=== PATIENT | male | born 1960 | race Caucasian/White ===

== ENCOUNTER → 2018-05-29 15:50 | Outpatient (CLI) | payer OTHER, SELFPAY ==
[2018-05-29 17:47] LABS: Absolute Lymphocyte Count 2.17 X10^3/ul (0.83-4.51); Absolute Neutrophil Count 3.4 X10^3/uL (2.0-7.7); Basophil# 0.03 X10^3/uL; Basophil% 0.5 % (0-1); Eosinophil# 0.12 X10^3/uL; Eosinophils% 1.9 % (0-5); Hematocrit 43.3 % (40-54); Hemoglobin 14.2 g/dl (13.0-16.5); Lymphocyte # 2.17 X10^3/ul (4.0); Lymphocyte % 34.7 % (19-41); Mean Corp Hgb Conc 32.8 g/gl (32-36); Mean Corpuscular Hgb 29.5 pg (27.0-32.0); Mean Platelet Vol. 8.9 fl (6.2-12.0); Monocyte# 0.51 X10^3/uL; Monocyte% 8.2 % (0-10); Neutrophil # 3.42 X10^3/uL (2.7-7.7); Neutrophil % 54.7 % (47-70); Platelet Count 351 K/mm3 (150-450); RBC Distribution Width CV 13.4 % (11.6-14.6); RBC Distribution Width SD 44.2 fl (35.1-43.9); Red Blood Count 4.81 M/mm3 (4.6-6.2); White Blood Count 6.3 K/mm3 (4.4-11.0)
[2018-05-29 17:52] LABS: POSITIVE COUNT NO; POSITIVE DIFFERENTIAL NO; POSITIVE MORPHOLOGY NO
[2018-05-29 17:53] LABS: Vitamin D,25 Hydroxy 34.8 ng/mL (29.95-100.01)
[2018-05-29 17:55] LABS: Anion Gap 10 (5-15); BUN 9 mg/dL (7-18); BUN/Creat Ratio 10.5 RATIO (10-20); Calcium,Total 9.1 mg/dL (8.5-10.1); Chloride 105 mmol/L (98-107); Cholesterol 238 mg/dL (200); Creatinine, Serum 0.86 mg/dL (0.70-1.30); EST Glomerular Filtration Rate 97 mL/min (>60); Est Glom Filt Rate - Afr Amer 118 mL/min (>60); Glucose 91 mg/dL (74-106); High Density Lipoprotein 73 mg/dL; PSA,Total - Annual Screen 0.84 ng/mL (0.00-4.00); Sodium Level 142 mmol/L (136-145); Thyroid Stim Hormone (TSH) 1.71 uIU/mL (0.358-3.74); Triglycerides 65 mg/dL; Very Low Density Lipoprotein 13 mg/dL (5-40)
== END ==
PROVIDERS: Family Provider Family Medicine; PCP Family Medicine; Visit Provider Family Medicine
DX: Z00.00 Encounter for general adult medical examination without abnormal findings (principal); R53.83 Other fatigue
CPT/HCPCS: 36415; 80048; 80061; 82306; 84153; 84443; 85025; G0103

== ENCOUNTER 2019-04-22 07:06 | Day surgery (SDC) | payer OTHER, SELFPAY ==
[2019-04-22 07:25] VITALS: BP 134/71; PULSE 64; RESP 16; TEMP 36.9; O2SAT 99; BMI 27.6
--- NOTE | 2019-04-22 07:46 | HP.PCM_ITS ---
History of Present Illness Date of Admission: 04/22/19 The patient is a 58 year old M here for colonoscopy. Patient says his last colonoscopy was about 13 years ago and there were no polyps found. Patient does not know his family history as he thinks his father may have had colon cancer but he is not sure. He denies any abdominal pain or blood in the stool. Past Medical/Surgical History - Planned Operation Planned Operative Procedure/s: colonoscopy Date of Operative Procedure: 04/22/19 Permit Signed: No S.O.S: No Is This Patient Having a Total Joint: No - Previous Hospitalizations/Surgeries HX Hospitalizations: No HX of Surgeries: fertility surgery Any Problems With Anesthesia: No You/Your Family Experience Fever (Hyperthermia) With Anes: No Cholinesterase deficiency: No - Cardiovascular Hx Chest Pain within Last 2 months: No Hx of Irregular Heartbeat and/or Afib: No Hx Heart Attack: No Hx Congestive Heart Failure: No Hx Rheumatic Fever: No Hx Hypertension: No Hx Internal Defibrillator: No Hx Pacemaker: No Hx Cardiac Catheterization: No Hx Cardiac Surgery/Stents/Etc.: No Hx Stress Test: No HX Edema: No Hx Pain in Legs when Walking/Leg Cramps: No - Respiratory Chronic Cough: No HX of Shortness of Breath: No Hoarseness: No Hx Chronic Obstructive Pulmonary Disease (COPD): No Hx Asthma: No Hx Emphysema: No Hx Sleep Apnea: No Hx Oxygen Use at Home: No Hx Respiratory Tract Infection/Cold (presently): No Do You Snore Loudly (louder than talking or can be heard): No Do You Often Feel Tired/ Fatigued/ Sleepy Dring Daytime?: No Has Anyone Observed You Stop Breathing During Sleep?: No Result (for STOP score): Negative Hx Smoking: Yes - quit 35 yrs ago Smoking Status: Former smoker - Gastrointestinal Hx Gastroesophageal Reflux: Yes - mild Controlled With Meds: No Hx Gastrointestinal Disorders: No Hx Gastrointestinal Bleed: No Hx Ulcer: No Hx Hiatal Hernia: No Difficulty Chewing/Swallowing: No Recent Onset of Swallowing Problems: No Special diet followed at home: No Hx Unplanned Weight Loss of 20#: No HX Unplanned Weight Gain of 20#: No - Neurological Hx Seizures: No HX Syncope/Blackout Spells/Unconsciousness: No Hx CVA/Stroke: No Hx Transient Ischemic Attacks (TIA): No Hx Multiple Sclerosis: No Hx Parkinson's Disease: No Hx Head/Neck Injury: No Hx Headaches: No Hx Back Injury/Pain: No Recent Onset of Speech Difficulty: No Restless Legs: No - Blood Disorder Hx Leukemia: No Bleeding Tendencies: No Hx Deep Vein Thrombosis: No Hx High Cholesterol: Yes - on medication Blood Transmitted Disease: No Hx Hepatitis: No Hx Cirrhosis: No Hx Anemia: No Hx Blood Disorders: No - Genitourinary Hx Renal Disease: No - Musculoskeletal Hx Arthritis: No Hx Rheumatoid Arthritis: No Hx Gout: No Recent Onset of an Orthopedic Problem: No - Endocrine Hx Diabetes: No Thyroid Disease: No Hx Steroid Therapy: No - Psycho/Social Hx Substance Use: No Hx Alcohol Use: No Hx Anxiety: No Hx Depression: No Mental Illness: No Hx Dementia: No - Miscellaneous Hx Cancer: No Recent Exposure to Contagious Disease: No Active MRSA: No Hx of C-Diff: No Any Loose Teeth: No Additional information pertinent to anesthesia:: poor historian. answered questions by saying im sure i had that in the past. Allergies No Known Allergies Allergy (Verified 04/22/19 07:24) - Discharge Is Pt Admitted From a Care Home, or a Fpc: No Who Could Help: family After D/C, Where Do you Plan to Go: Return Home - Physical Exam General: Alert, Oriented x3 Lungs: Normal air movement Cardiovascular: Regular rate, Regular Rhythm Abdomen: Soft, Non Tender, Non-Distended Vital Signs Temp Pulse Resp BP Pulse Ox 98.4 F 64 16 134/71 H 99 04/22/19 07:25 04/22/19 07:25 04/22/19 07:25 04/22/19 07:25 04/22/19 07:25 Oxygen Delivery Method Room Air Weight: 181 lb 14.102 oz Body Mass Index (BMI) 27.6 Assessment/Plan 58-year-old male for screening colonoscopy I explained endoscopy in detail to the patient. I explained the risks including but not limited to stroke or heart attack with anesthesia, perforation of the GI tract, bleeding, infection. I explained that any of these could necessitate further emergency surgery. The patient understands and all questions were answered sufficiently. The patient wishes to proceed with procedure. Ash Leggett MD Pager: [facility] [address] [place] [address], [address] [place] [phone] Office: Surgery Risks - Colonoscopy Risks Include but are not Limited To: Risks include but are not limited to: Bleeding, perforation requiring further surgery, inability to complete colonoscopy requiring barium enema.
[2019-04-22 08:29] VITALS: BP 119/65; BP 134/71; PULSE 62; RESP 16; TEMP 36.4; O2SAT 100
--- NOTE | 2019-04-22 08:29 | OP.ENDO_ITS ---
04/22/2019 Ajay Yanez MD [address] [id number] Re : Colonoscopy procedure for Spencer Patel Dear Dr. Yanez This procedure was performed on Monday, April 22, 2019. My impressions and recommendations are as follows: Impressions : - The entire examined colon is normal on direct and retroflexion views. - No specimens collected. Recommendations : - Discharge patient to home. - Resume previous diet. - Continue present medications. - Repeat colonoscopy in 10 years for screening purposes. My findings are described in the full procedure note, which is enclosed. If I can be of further assistance, please feel free to contact me at Doctor phone number(s): , Work: . Sincerely, Ash Leggett MD 04/22/2019 8:29:22 AM This report has been signed electronically.
[2019-04-22 08:35] VITALS: BP 120/63; BP 134/71; PULSE 62; RESP 16; O2SAT 100
[2019-04-22 08:40] VITALS: BP 123/76; BP 134/71; PULSE 55; RESP 16; O2SAT 99
[2019-04-22 08:45] VITALS: BP 118/69; BP 134/71; PULSE 58; RESP 16; TEMP 36.4; O2SAT 100
[2019-04-22 08:46] VITALS: BP 134/71
== END 2019-04-22 09:05 | disposition home or self-care (01) ==
LOC: EN 07:09 → AC 07:09
PROVIDERS: Family Provider Family Medicine; PCP Family Medicine; Referring Provider Family Medicine; Visit Provider Surgery
PROC: 0DJD8ZZ Inspection of Lower Intestinal Tract, Via Natural or Artificial Opening Endoscopic (ICD-10-PCS; CPT 45378; principal; 2019-04-22 07:55)
DX: Z12.11 Encounter for screening for malignant neoplasm of colon (principal); K21.9 Gastro-esophageal reflux disease without esophagitis; E78.00 Pure hypercholesterolemia, unspecified; Z87.891 Personal history of nicotine dependence; Z79.899 Other long term (current) drug therapy
CPT/HCPCS: 45378; J7120

== ENCOUNTER → 2019-12-24 | Outpatient (CLI) | payer OTHER, SELFPAY | END | disposition home or self-care (01) | LOC: MFPLAB 11:40 | PROVIDERS: PCP Family Medicine; Referring Provider Family Medicine; Visit Provider Family Medicine | DX: R69 Illness, unspecified (principal) ==

== ENCOUNTER 2021-02-17 13:35 | Emergency (ER) | payer OTHER, SELFPAY ==
[2021-02-17 13:36] VITALS: BP 142/79; PULSE 86; RESP 18; TEMP 36.6; O2SAT 98; BMI 28.1
[2021-02-17 14:11] VITALS: PULSE 82; RESP 22; O2SAT 97
--- NOTE | 2021-02-17 14:16 | RAD_ITS ---
STUDY: X-RAY - LEFT HAND REASON FOR EXAM: Male, 60 years old. Trauma. Pain and deformity of the fourth digit. TECHNIQUE: 3 view(s) of the hand. COMPARISON: None. FINDINGS: Normal radiocarpal articulation. Normal distal radioulnar joint. Normal visualized carpal bones. Normal carpal articulations Normal carpometacarpal articulation of the thumb. Normal second through fifth carpometacarpal joints. Normal metacarpi. Normal metacarpophalangeal joint of the thumb. Normal interphalangeal joint of the thumb. Normal proximal and distal phalanges of the thumb. Normal metacarpophalangeal joints of the second through fifth fingers. There is evidence of a dorsal dislocation of the proximal interphalangeal joint of the fourth digit. Normal phalanges of the second through fifth fingers. Soft tissue swelling. RAD/Hand Min 3 Views IMPRESSION: Dorsal dislocation of the proximal interphalangeal joint of the fourth digit with overlying soft tissue swelling Electronically Signed: Joshua Barajas MD at 15:04 EDT , Service support ,
--- NOTE | 2021-02-17 14:16 | EKG12_ITS ---
Test Reason : TRAUMA Blood Pressure : / mmHG Vent. Rate : 078 BPM Atrial Rate : 078 BPM P-R Int : 156 ms QRS Dur : 088 ms QT Int : 384 ms P-R-T Axes : 056 039 024 degrees QTc Int : 437 ms Normal sinus rhythm Normal ECG Confirmed by WESLEY CALLAHAN MD ([id number]), legal editor NOEMI ROMAN ([id number]) on 02/21/2021 12:38:06 PM Referred By: MANI Confirmed By:WESLEY CALLAHAN MD
--- NOTE | 2021-02-17 14:17 | CT_ITS ---
STUDY: CT BRAIN WITHOUT CONTRAST REASON FOR EXAM: Male, 60 years old. Trauma. Patient fell off the ladder. RADIATION DOSAGE (If Supplied By Facility): CTDIvol = ( 44.99 ) mGy, DLP = ( 796.11 ) mGycm TECHNIQUE: Transaxial CT imaging of the brain was performed without administration of intravenous contrast material. Individualized dose optimization techniques were used for this CT. COMPARISON: Comparison is made with prior study dated 01/14/2016. FINDINGS: Normal soft tissue structures. Normal calvarium. Normal size ventricles and extra-axial spaces for the patient''s age. Normal white matter tracts of the cerebral hemispheres. Normal basal ganglia and thalami. Normal brainstem. Normal cerebellum. There is no intracranial hemorrhage. There are no findings of an acute ischemic infarction. Normal visualized paranasal sinuses. CT/Brain/Head without Contrast IMPRESSION: Normal unenhanced CT scan of the brain. Electronically Signed: Joshua Barajas MD at 14:48 EDT , Service support ,
--- NOTE | 2021-02-17 14:17 | CT_ITS ---
STUDY: CT CHEST, ABDOMEN T PELVIS WITH CONTRAST REASON FOR EXAM: Male, 60 years old. Trauma -- TRAUMA ONLY: IV Contrast. Dont wait for creatinine RADIATION DOSAGE (If Supplied By Facility): CTDIvol = ( 19.21 ) mGy, DLP = ( 1713.31 ) mGycm TECHNIQUE: Transaxial imaging was performed following intravenous administration of . Individualized dose optimization techniques were used for this CT. COMPARISON: No relevant priors. FINDINGS: CHEST Hyperinflation. Mild degree of increased linear markings at the lung bases this is suggestive of mild basilar atelectasis and/or scarring slightly more prominent at the left lung base. Calcified granuloma in the left lower lobe. There is no demonstrated pleural abnormality. There are calcifications of the coronary arteries. Normal mediastinum. Calcified left hilar lymph nodes. Normal unenhanced pulmonary arteries. Atherosclerotic plaque formation at the level of the aortic arch. There are multi-level degenerative changes of the thoracic spine. There is no demonstrated abnormality of the visualized upper abdomen. ABDOMEN Mild degree of increased markings at the lung bases slightly worse on the left side suggestive of scarring. The visualized portions of the heart are within normal limits. There is decreased attenuation of the liver consistent with steatosis. Normal gallbladder and extrahepatic biliary system. Normal spleen. Normal pancreas. Normal bilateral adrenal glands. Normal right kidney. 3 mm nonobstructive calculus in the lower pole calyx of the left kidney. There is a small hiatal hernia. Normal small intestine. There are scattered colonic diverticula consistent with diverticulosis. The appendix is visualized and appears normal. Normal abdominal aorta. Normal inferior vena cava. Normal retroperitoneum. Normal abdominal wall. There are diffuse degenerative changes of the visualized lumbar spine. Grade 1 anterior listhesis of L5 on S1 secondary to spondylolysis of the pars interarticularis of the L5 vertebrae. PELVIS Normal urinary bladder. Prosthetic calcifications. Normal visualized small intestine. Normal visualized colon. There is no pelvic fluid. There is no pelvic lymphadenopathy or mass lesion. Normal visualized pelvic arteries. CT/CT Chest, Abd, Pel w/Contrast IMPRESSION: Mild degree of increased markings at the lung bases suggestive of mild scarring. Punctate calcification in the lower pole calyx of the left kidney. Grade 1 anterior listhesis of L5 on S1 with spondylolysis of the pars interarticularis of the L5 vertebrae. Electronically Signed: Joshua Barajas MD at 14:57 EDT , Service support ,
--- NOTE | 2021-02-17 14:17 | CT_ITS ---
STUDY: CT CERVICAL SPINE WITHOUT CONTRAST REASON FOR EXAM: Male, 60 years old. Trauma. Patient fell off ladder. RADIATION DOSAGE (If Supplied By Facility): CTDIvol = ( 25.32 ) mGy, DLP = ( 498.00 ) mGycm TECHNIQUE: High resolution transaxial imaging was performed without contrast material. Sagittal and coronal images were reconstructed. Individualized dose optimization techniques were used for this CT. COMPARISON: None FINDINGS: Normal craniovertebral junction. Normal anterior atlantoaxial articulation. Normal odontoid process. Normal cervical lordosis. Normal vertebral bodies and posterior osseous elements. C2-3: Normal endplates. Normal disc height and morphology. Normal central canal and intervertebral neuroforamina. C3-4: Moderate degree of disc space narrowing at the C3-C4 level with spondylosis. Mild degree of uncovertebral arthrosis and mild bilateral neural foraminal stenosis. C4-5: Normal endplates. Normal disc height and morphology. Normal central canal and intervertebral neuroforamina. C5-6: Normal endplates. Normal disc height and morphology. Normal central canal and intervertebral neuroforamina. C6-7: Normal endplates. Normal disc height and morphology. Normal central canal and intervertebral neuroforamina. C7-T1: Normal endplates. Normal disc height and morphology. Normal central canal and intervertebral neuroforamina. Normal visualized soft tissue structures. CT/Spine Cervical without Contras IMPRESSION: Degenerative changes, as described above. Electronically Signed: Joshua Barajas MD at 14:49 EDT , Service support ,
--- NOTE | 2021-02-17 14:18 | EDS_ITS ---
HPI HPI - Fall History of Present Illness Chief Complaint: Trauma Informant: patient Occured/Mechanism Occurred: Today Fall from Height (ft): 12 Usually ambulates: Without assistance Pain/Injury Pain Location: head, chest and upper extremity Quality of Pain: Aching Current Severity: Moderate Maximum Severity: Moderate Associated Symptoms Associated Symptoms: Negative for Parasthesias, Weakness and Loss of function Narrative Narrative: The patient is a 60-year-old male who is on no daily medications and presents to the emergency department after a fall. Patient was painting. He states he was about 12 feet in the air. States he lost his balance on his ladder and fell. He struck the truck that was near him. He struck his head and left posterior chest. He is unsure if he lost consciousness, but does have some amnesia to the event. He was able to stand and ambulate. His only current complaints are of pain in his left posterior ribs and in his left hand. He is right-hand dominant. He is unsure of his last tetanus. Tetanus Immunization: Unknown Prior similar symptoms: No Recent Illness/Hospitalization: No PFSH PFSH Medical History Patient denies medical problems Home Medications hydrocodone-acetaminophen 1 tab PO Q6H PRN PRN 3 Days #10 tablet 02/17/21 [Rx Last Taken Unknown] multivitamin 1 tab PO DAILY 02/17/21 [History Last Taken Unknown] Allergy/AdvReac Type Severity Reaction Status Date / Time No Known Allergies Allergy Verified 02/17/21 13:39 no significant family history no surgical history Social History Smoking Status: Former smoker ROS ROS ED Constitutional Constitutional ED: Denies chills or fever(s) Eyes Eyes: Denies blurry vision or change in vision ENT ENT ED: Denies ear pain or sore throat Cardiovascular Cardiovascular: Denies chest pain or palpitations Respiratory/Chest Respiratory/Chest: Denies cough, dyspnea or dyspnea on exertion Gastrointestinal Gastrointestinal: Denies abdominal pain, nausea or vomiting Genitourinary Genitourinary ED: Denies dysuria or urinary frequency Musculoskeletal Musculoskeletal: Denies arthralgias or myalgias Integumentary Denies rash Neurologic Neurologic: Denies headache(s) or paresthesias Psychiatric Psychiatric: Denies anxiety or depression Endocrine Endocrinology: Denies polydipsia or polyuria Allergic/Immunologic Allergic/Immunologic ED: Denies urticaria EXAM Physical Exam Const Vital Signs: 02/17/21 13:36 02/17/21 14:11 02/17/21 14:15 Temperature 97.8 F Temperature Source Temporal Pulse Rate 86 82 Respiratory Rate 18 22 H Respiratory Effort Normal Respiratory Depth Normal Respiratory Pattern Normal Blood Pressure 142/79 H Blood Pressure Mean 100 Pulse Ox 98 97 Oxygen Delivery Method Room Air Room Air Room Air Positive well nourished and well developed General Appearance ED: well developed HEENT Reports normocephalic HEENT Narrative: Abrasion on the posterior occipital area over the C-spine. No midline tenderness. No active bleeding. trauma Eyes PERRL and EOMs intact bilaterally Neck full ROM, no lymphadenopathy and supple General: Negative for tenderness Chest Wall inspection of chest normal; Negative for palpation of chest normal Chest Narrative: Tenderness in the left posterior rib Resp normal respiratory effort, no retractions and clear to auscultation bilaterally Cardio regular rate, regular rhythm and no murmurs GI non-tender, non-distended and no masses Auscultation: normoactive bowel sounds Palpation: soft Back/Spine no CVA tenderness Lumbar Spine / Lower Back: paraspinal muscle tenderness Extremity normal capillary refill and no calf tenderness Extremity Narrative: Obvious deformity of the left fourth finger. Normal cap refill. Neuro oriented x3, CN's II-XII intact bilaterally, moves all extremities, no focal motor deficits and no sensory deficits noted Sensorium / Orientation: alert, oriented to person, oriented to place, oriented to time and orientation impaired Motor Exam: strength 5/5 throughout Psych mental status grossly normal and thought process normal Skin Lesions: no lesions Rashes: no rashes MDM MDM MDM Narrative Medical decision making narrative: Patient presents to the emergency department after a fall on a ladder. He struck his head and did have amnesia to the event. He is also complaining of some posterior rib pain. He is not tachypneic or hypoxic. He has bilateral lung sounds. He is awake and alert with a GCS of 15. However, based on the mechanism metabolic work-up was pursued. He does have a mild leukocytosis which is likely stress related. CT of the head and neck were both negative for acute process. CT the abdomen and pelvis was also unremarkable for acute intra-abdominal injury. CT of the chest showed no pulmonary contusion, pneumothorax, hemothorax, or other dangerous process. I did discuss this with the radiologist as it was initially read as completely negative. He does appear to have some nondisplaced posterior rib fractures on ribs 5 through 7. X-rays of the left hand reviewed by myself and the radiologist you have show a PIP dislocation of the fourth. Patient underwent digital block with 10 cc bupivacaine. Once anesthesia was achieved, his finger was reduced easily. He is placed in AlumaFoam splint. The patient be given an incentive spirometer. His wound was cleaned and dressed. At this point, he will be discharged home and was counseled on concerning symptoms and reasons to return. Impression 1. Fall from 12 feet 2. Left fifth through seventh nondisplaced rib fracture 3. Posterior scalp abrasion 4. Left fourth PIP dislocation with reduction Lab Data Attestation: I reviewed the patient's lab results. Labs: Laboratory Results - last 24 hr 02/17/21 02/17/21 14:15 14:15 WBC 13.3 H RBC 5.06 Hgb 15.4 Hct 46.1 MCV 91.1 MCH 30.4 MCHC 33.4 RDW Std Deviation 45.2 H RDW Coeff of Barrett 13.4 Plt Count 368 MPV 8.2 Immature Gran % (Auto) 0.500 Neut % (Auto) 80.8 H Lymph % (Auto) 11.7 L [place] % (Auto) 6.1 Eos % (Auto) 0.5 Baso % (Auto) 0.4 Absolute Neuts (auto) 10.7 H Absolute Lymphs (auto) 1.55 Nucleated RBC % 0 Sodium 137 Potassium 3.9 Chloride 102 Carbon Dioxide 28.0 Anion Gap 7 BUN 12 Creatinine 0.76 Estim Creat Clear Calc 100.00 Est GFR (MDRD) Af Amer 134 Est GFR (MDRD) Non-Af 111 BUN/Creatinine Ratio 15.7 Glucose 123 H Calcium 9.0 Radiography Diagnostic Testing: Radiology Impression Hand X-Ray 02/17/21 14:16 IMPRESSION: Dorsal dislocation of the proximal interphalangeal joint of the fourth digit with overlying soft tissue swelling Electronically Signed: Joshua Barajas MD at 15:04 EDT , Service support , Brain CT 02/17/21 14:17 IMPRESSION: Normal unenhanced CT scan of the brain. Electronically Signed: Joshua Barajas MD at 14:48 EDT , Service support , Cervical Spine CT 02/17/21 14:17 IMPRESSION: Degenerative changes, as described above. Electronically Signed: Joshua Barajas MD at 14:49 EDT , Service support , Chest/Abdomen/Pelvis CT 02/17/21 14:17 IMPRESSION: Mild degree of increased markings at the lung bases suggestive of mild scarring. Punctate calcification in the lower pole calyx of the left kidney. Grade 1 anterior listhesis of L5 on S1 with spondylolysis of the pars interarticularis of the L5 vertebrae. Electronically Signed: Joshua Barajas MD at 14:57 EDT , Service support , ADDENDUM: 02/17/21 1518 Discharge Plan Triage Chief Complaint: Trauma ED Provider: Ivan Cannon Dx/Rx/DC Orders Clinical Impression: Fracture of rib, Closed dislocation of left middle finger Instructions: ED Joint Dislocation, ED Rib Fracture Prescriptions: New hydrocodone-acetaminophen [hydrocodone-acetaminophen] 1 TABLET tablet 1 tab PO Q6H PRN PRN (Reason: Pain) 3 Days Qty: 10 RF: 0 No Action multivitamin Tablet 1 tab PO DAILY RF: 0 Primary Care Provider: Ajay Yanez Referrals: Ajay Yanez MD [Primary Care Provider] -
[2021-02-17] MEDS: 0.9% Normal Saline 1,000 ML 999 ML IV (14:20)
[2021-02-17 14:23] LABS: Absolute Lymphocyte Count 1.55 X10^3/uL (0.83-4.51); Absolute Neutrophil Count 10.7 X10^3/uL (2.0-7.7); Basophil# 0.05 X10^3/uL; Basophil% 0.4 % (0-1); Eosinophil# 0.07 X10^3/uL; Eosinophils% 0.5 % (0-5); Hematocrit 46.1 % (40-54); Hemoglobin 15.4 g/dL (13.0-16.5); Lymphocyte # 1.55 X10^3/ul (0.83-4.51); Lymphocyte % 11.7 % (19-41); Mean Corp Hgb Conc 33.4 g/dL (32-36); Mean Corpuscular Hgb 30.4 pg (27.0-32.0); Mean Corpuscular Volume 91.1 fL (80-94); Mean Platelet Vol. 8.2 fl (6.2-12.0); Monocyte# 0.81 X10^3/uL; Monocyte% 6.1 % (0-10); NRBC Flagged by Analyzer 0 % (0-5); Neutrophil % 80.8 % (47-70); Platelet Count 368 K/mm3 (150-450); RBC Distribution Width CV 13.4 % (11.6-14.6); RBC Distribution Width SD 45.2 fl (35.1-43.9); Red Blood Count 5.06 M/mm3 (4.6-6.2); White Blood Count 13.3 K/mm3 (4.4-11.0)
[2021-02-17] MEDS: Diphth,Pertuss(Acell),Tet Vac 0.5 ML Vial IM (14:23)
[2021-02-17 14:36] LABS: Anion Gap 7 (5-15); BUN 12 mg/dL (7-18); BUN/Creat Ratio 15.7 RATIO (10-20); Chloride 102 mmol/L (98-107); Creatinine, Serum 0.76 mg/dL (0.70-1.30); EST Glomerular Filtration Rate 111 mL/min (>60); Est Glom Filt Rate - Afr Amer 134 mL/min (>60); Glucose 123 mg/dL (74-106); Potassium 3.9 mmol/L (3.5-5.1); Sodium Level 137 mmol/L (136-145)
[2021-02-17 16:46] VITALS: BP 124/79; PULSE 81; RESP 16; O2SAT 97
--- NOTE | 2021-02-17 16:47 | ED.RN ---
THIS NURSE REVIEWED D/C INSTRUCTIONS WITH PT AND . BOTH VERBALIZED UNDERSTANDING OF INSTRUCTIONS. PT DENIES FURTHER NEEDS OR QUESTIONS AT THIST TIME. PT AMBULATES FROM ROOM WITH STAFF STANDBY ASSIST
== END 2021-02-17 16:48 | disposition home or self-care (01) ==
LOC: ED 14:58
PROVIDERS: Emergency Provider Emergency Medicine; PCP Family Medicine
DX: S63.285A Dislocation of proximal interphalangeal joint of left ring finger, initial encounter (principal); S22.42XA Multiple fractures of ribs, left side, initial encounter for closed fracture; S00.01XA Abrasion of scalp, initial encounter; W11.XXXA Fall on and from ladder, initial encounter; Y93.89 Activity, other specified; Y92.89 Other specified places as the place of occurrence of the external cause; Y99.8 Other external cause status; Z87.891 Personal history of nicotine dependence
CPT/HCPCS: 26770; 70450; 71260; 72125; 73130; 74177; 80048; 85025; 90471; 90715; 93005; 96360; 96361; 99284; Q9967

== ENCOUNTER → 2021-02-24 10:58 | Outpatient (CLI) | payer OTHER, SELFPAY ==
[2021-02-17 13:36] VITALS: BMI 28.1
[2021-02-24 12:37] LABS: AST(SGOT) 20 U/L (15-37); Alanine Aminotransfer ALT/SGPT 43 U/L (16-61); Albumin, Serum 3.8 g/dL (3.2-5.0); Alkaline Phosphatase 83 U/L (45-117); Anion Gap 6 (5-15); BUN 10 mg/dL (7-18); BUN/Creat Ratio 15.1 RATIO (10-20); Calcium,Total 9.2 mg/dL (8.5-10.1); Chloride 102 mmol/L (98-107); Cholesterol 216 mg/dL (200); Creatinine, Serum 0.66 mg/dL (0.70-1.30); EST Glomerular Filtration Rate 131 mL/min (>60); Est Glom Filt Rate - Afr Amer 158 mL/min (>60); Globulin 3.8 g/dL (2.2-4.2); Glucose 108 mg/dL (74-106); High Density Lipoprotein 78 mg/dL; Potassium 3.6 mmol/L (3.5-5.1); Protein, Total 7.6 g/dL (6.4-8.2); Sodium Level 138 mmol/L (136-145); Triglycerides 66 mg/dL; Very Low Density Lipoprotein 13 mg/dL (5-40)
== END ==
PROVIDERS: PCP Family Medicine; Referring Provider Family Medicine; Visit Provider Family Medicine
DX: E78.5 Hyperlipidemia, unspecified (principal)
CPT/HCPCS: 36415; 80053; 80061

== ENCOUNTER → 2021-08-29 09:07 | Outpatient (CLI) | payer OTHER, SELFPAY ==
[2021-08-29 10:44] LABS: ALB/GLOB Ratio 1.1 RATIO (0.9-2.4); AST(SGOT) 16 U/L (15-37); Alanine Aminotransfer ALT/SGPT 29 U/L (16-61); Albumin, Serum 3.7 g/dL (3.2-5.0); Alkaline Phosphatase 67 U/L (45-117); Anion Gap 3 (5-15); BUN 13 mg/dL (7-18); BUN/Creat Ratio 17.9 RATIO (10-20); Calcium,Total 9.2 mg/dL (8.5-10.1); Chloride 109 mmol/L (98-107); Cholesterol 204 mg/dL (200); Creatinine, Serum 0.73 mg/dL (0.70-1.30); EST Glomerular Filtration Rate 117 mL/min (>60); Est Glom Filt Rate - Afr Amer 141 mL/min (>60); Globulin 3.5 g/dL (2.2-4.2); Glucose 102 mg/dL (74-106); High Density Lipoprotein 66 mg/dL; Potassium 4.2 mmol/L (3.5-5.1); Protein, Total 7.2 g/dL (6.4-8.2); Sodium Level 141 mmol/L (136-145); Triglycerides 85 mg/dL; Very Low Density Lipoprotein 17 mg/dL (5-40)
== END ==
PROVIDERS: PCP Family Medicine; Referring Provider Family Medicine; Visit Provider Family Medicine
DX: E78.5 Hyperlipidemia, unspecified (principal)
CPT/HCPCS: 36415; 80053; 80061

== ENCOUNTER → 2022-06-20 | Outpatient (CLI) | payer OTHER, SELFPAY ==
[2022-06-20 18:08] LABS: Absolute Lymphocyte Count 1.84 X10^3/uL (0.83-4.51); Absolute Neutrophil Count 3.5 X10^3/uL (2.0-7.7); Basophil# 0.04 X10^3/uL; Basophil% 0.7 % (0-1); Eosinophil# 0.11 X10^3/uL; Eosinophils% 1.8 % (0-5); Hematocrit 42.4 % (40-54); Hemoglobin 14.3 g/dL (13.0-16.5); Lymphocyte # 1.84 X10^3/ul (0.83-4.51); Lymphocyte % 30.4 % (19-41); Mean Corp Hgb Conc 33.7 g/dL (32-36); Mean Corpuscular Hgb 30.6 pg (27.0-32.0); Mean Corpuscular Volume 90.8 fL (80-94); Mean Platelet Vol. 8.9 fl (6.2-12.0); Monocyte# 0.54 X10^3/uL; Monocyte% 8.9 % (0-10); NRBC Flagged by Analyzer 0 % (0-5); Neutrophil % 57.9 % (47-70); Platelet Count 343 K/mm3 (150-450); RBC Distribution Width CV 13.2 % (11.6-14.6); RBC Distribution Width SD 43.4 fl (35.1-43.9); Red Blood Count 4.67 M/mm3 (4.6-6.2); White Blood Count 6.1 K/mm3 (4.4-11.0)
[2022-06-20 18:31] LABS: Thyroid Stim Hormone (TSH) 2.42 uIU/mL (0.358-3.74)
[2022-06-22 16:23] LABS: EBV Early Antigen IgG <9.0 U/mL (0.0-8.9); EBV Nuclear Antigen IgG < 18.0 U/mL (0.0-17.9); EBV-VCA IgG < 18.0 U/mL (0.0-17.9)
== END | disposition home or self-care (01) ==
LOC: MFPLAB 15:46
PROVIDERS: PCP Family Medicine; Visit Provider Family Medicine
DX: R53.83 Other fatigue (principal)
CPT/HCPCS: 36415; 84443; 85025; 86663; 86664; 86665

== ENCOUNTER → 2023-04-02 | Outpatient (CLI) | payer OTHER, SELFPAY ==
[2023-04-02 11:44] LABS: Anion Gap 9 (5-15); BUN 14 mg/dL (7-18); BUN/Creat Ratio 17.7 RATIO (10-20); Calcium,Total 9.6 mg/dL (8.5-10.1); Chloride 106 mmol/L (98-107); Cholesterol 219 mg/dL (200); Creatinine, Serum 0.79 mg/dL (0.70-1.30); EST Glomerular Filtration Rate 106 mL/min (>60); Est Glom Filt Rate - Afr Amer 128 mL/min (>60); Glucose 110 mg/dL (74-106); High Density Lipoprotein 68 mg/dL; PSA,Total - Annual Screen 0.98 ng/mL (0.00-4.00); Potassium 4.6 mmol/L (3.5-5.1); Sodium Level 139 mmol/L (136-145); Triglycerides 52 mg/dL; Very Low Density Lipoprotein 10 mg/dL (5-40)
== END | disposition home or self-care (01) ==
LOC: MFPLAB 08:51
PROVIDERS: PCP Family Medicine; Visit Provider Family Medicine
DX: Z00.00 Encounter for general adult medical examination without abnormal findings (principal)
CPT/HCPCS: 36415; 80048; 80061; 84153; G0103

== ENCOUNTER 2024-01-01 14:11 | Emergency (ER) | payer OTHER, SELFPAY ==
[2024-01-01] VITALS (15 sets, daily range): BP systolic 112–162; BP diastolic 63–73; PULSE 67–82; RESP 11–18; TEMP 36.3–36.6; O2SAT 96–100; BMI 26.3
--- NOTE | 2024-01-01 14:53 | CT_ITS ---
INDICATION: confusion EXAMINATION: CT BRAIN - CT Head or Brain W/O Contrast Injection TECHNIQUE: Multiple axial images were obtained of the head without intravenous contrast. A radiation dose optimization technique was used for this scan. IV Contrast dosage and agent: None. RADIATION DOSAGE (If Supplied By Facility): CTDIvol = ( 44.99 ) mGy, DLP = ( 779.24 ) mGycm COMPARISON: Prior study dated: 02/17/2021 FINDINGS: BRAIN PARENCHYMA: No intra- or extra-axial hemorrhage. No evidence of acute infarct. No intracranial mass or mass effect. There is preservation of the whiting/white matter interface. Posterior fossa structures are unremarkable. CSF SPACES: Appropriate for age. No hydrocephalus. Basal cisterns are patent. CALVARIUM, SKULL BASE, PARANASAL SINUSES AND MASTOID AIR CELLS: Mucosal thickening of the right ethmoid sinus. No discrete lytic or blastic abnormalities. ORBITS: Both globes, extraocular muscles, optic nerves and retrobulbar fat appear unremarkable. CT/Brain/Head without Contrast IMPRESSION: No acute intracranial process. Electronically Signed: Jamar Smith MD at 15:29 EDT ,
--- NOTE | 2024-01-01 14:53 | EKG12_ITS ---
Test Reason : Blood Pressure : / mmHG Vent. Rate : 078 BPM Atrial Rate : 078 BPM P-R Int : 162 ms QRS Dur : 084 ms QT Int : 378 ms P-R-T Axes : 061 040 018 degrees QTc Int : 430 ms Normal sinus rhythm Normal ECG Confirmed by Ivan Brice ([id number]), editor news NOEMI ROMAN ([id number]) on 01/03/2024 11:03:03 AM Referred By: Confirmed By:Ivan Brice
--- NOTE | 2024-01-01 14:54 | EDS_ITS ---
HPI History of Present Illness Chief Complaint: Confusion Informant: patient and family Narrative Narrative: Patient brought in by son-in-law secondary to concerns for confusion. Patient states that he feels like he has congestion in his head and chest for the last couple days. He has not eaten today but did drink a beer this morning. He states he feels like it is made him more confused and it normally would. He denies headache, vision change, chest pain, palpitations, vomiting, or diarrhea. He does admit to some depression. He states he does not take any medications and does not have any chronic medical problems. [facility] Medical History Patient denies medical problems Home Medications hydrocodone-acetaminophen 5-325mg 5mg-325mg 1 tab PO Q6H PRN PRN Pain 3 days #10 TABLETS 02/17/21 [Rx Last Taken Unknown] multivitamin 1 tab PO DAILY 02/17/21 [History Last Taken Unknown] Allergy/AdvReac Type Severity Reaction Status Date / Time No Known Allergies Allergy Verified 02/17/21 13:39 Social History Smoking Status: Former smoker ROS ROS ED Constitutional Constitutional ED: Denies chills or fever(s) Eyes Eyes: Denies change in vision or discharge from eye(s) ENT ENT ED: Denies discharge from eye(s), rhinorrhea or sore throat Cardiovascular Cardiovascular: Denies chest pain or palpitations Respiratory/Chest Respiratory/Chest: Reports cough; Denies dyspnea Gastrointestinal Gastrointestinal: Denies abdominal pain, diarrhea, nausea or vomiting Genitourinary Genitourinary ED: Denies dysuria Musculoskeletal Musculoskeletal: Denies back pain or extremity pain Integumentary Denies Abrasions or rash Neurologic Neurologic: Denies headache(s) or weakness Psychiatric Psychiatric: Reports depression Allergic/Immunologic Allergic/Immunologic ED: Denies lip swelling or urticaria EXAM Physical Exam Const Vital Signs: 01/01/24 14:14 01/01/24 15:15 01/01/24 16:15 Temperature 97.4 F L Temperature Source Temporal Pulse Rate 82 72 72 Respiratory Rate 17 18 18 Blood Pressure 162/70 H 128/73 H 123/64 H Blood Pressure Mean 100 83 80 Pulse Ox 99 96 100 Oxygen Delivery Method Room Air Positive well nourished and well developed General Appearance ED: well developed HEENT Reports moist mucous membranes Eyes EOMs intact bilaterally Chest Wall inspection of chest normal and palpation of chest normal Resp normal respiratory effort and clear to auscultation bilaterally Cardio regular rate and regular rhythm GI non-tender Palpation: soft Neuro oriented x3 and no sensory deficits noted Neuro Narrative: Patient slightly slow to answer questions but does answer appropriately. No focal neurologic deficit. Motor Exam: strength 5/5 throughout Psych mental status grossly normal Skin no rashes or lesions noted MDM MDM MDM Narrative Medical decision making narrative: IV line established. Patient placed on ekg monitor. EKG obtained to evaluate for cardiac arrhythmia/ischemia. Chest x-ray obtained to evaluate for acute lung pathology, cardiac size, or mediastinal abnormality. Labwork obtained to evaluate for leukocytosis, anemia, and electrolyte derangement. Urinalysis obtained to evaluate for infection/hematuria. CT scan of the head will be obtained given his increased confusion. History & Record Review Discussion w/independent historian: Patient and Family Additional record(s) reviewed:: Prior labs Lab Data Attestation: I reviewed the patient's lab results. Labs: Laboratory Results - last 24 hr 01/01/24 01/01/24 15:05 16:05 WBC 6.8 RBC 4.90 Hgb 14.5 Hct 43.6 MCV 89.0 MCH 29.6 MCHC 33.3 RDW Std Deviation 43.5 RDW Coeff of Barrett 13.2 Plt Count 327 MPV 8.5 Immature Gran % (Auto) 0.100 Neut % (Auto) 67.8 Lymph % (Auto) 24.6 [place] % (Auto) 5.3 Eos % (Auto) 1.5 Baso % (Auto) 0.7 Absolute Neuts (auto) 4.6 Absolute Lymphs (auto) 1.68 Nucleated RBC % 0 Sodium 142 Potassium 3.7 Chloride 107 Carbon Dioxide 27.0 Anion Gap 8 BUN 12 Creatinine 0.75 Estim Creat Clear Calc 97.53 Est GFR (MDRD) Af Amer 136 Est GFR (MDRD) Non-Af 112 BUN/Creatinine Ratio 16.0 Glucose 106 Calcium 8.5 Total Bilirubin 0.40 Direct Bilirubin 0.12 AST 16 ALT 22 Alkaline Phosphatase 62 Troponin I High Sens 4 Total Protein 7.3 Albumin 4.0 Globulin 3.3 Urine Color Straw Urine Clarity Clear Urine pH 6.5 Ur Specific [place] 1.010 Urine Protein 30 H Urine Glucose (UA) Normal Urine Ketones Negative Urine Occult Blood 10 H Urine Nitrite Negative Urine Bilirubin 1 H Urine Urobilinogen Normal Ur Leukocyte Esterase 25 H Urine RBC 0 SEEN Urine WBC 0 SEEN Ur Squamous Epith Cells 0 SEEN Urine Bacteria 0 SEEN Urine Mucus 0 SEEN Urine Opiates Screen NEGATIVE Urine Methadone Screen NEGATIVE Ur Barbiturates Screen NEGATIVE Ur Phencyclidine Scrn NEGATIVE Ur Amphetamines Screen NEGATIVE MDMA (Ecstasy) Screen NEGATIVE U Benzodiazepines Scrn NEGATIVE Urine Cocaine Screen NEGATIVE U Cannabinoids Screen NEGATIVE Ur Drug Screen Comment Ethyl Alcohol 198.0 Radiography Chest X-Ray - ED: 1 View, Read by ED Physician, Normal, Heart, Lungs and Mediastinum Diagnostic Testing: Clinical Impression(s) from Imaging Studies Brain CT 01/01/24 14:53 IMPRESSION: No acute intracranial process. Electronically Signed: Jamar Smith MD at 15:29 EDT , Chest X-Ray 01/01/24 15:25 IMPRESSION: No radiographic evidence of acute cardiopulmonary disease. Electronically Signed: Jamar Smith MD at 15:35 EDT , EKG Initial EKG: Attestation: I personally reviewed and interpreted this EKG as follows: Interpretation: Sinus Rhythm (Sinus at 78 with no acute ischemia. Significant artifact noted in lead V3.) Treatment and Re-Evaluation :: CBC was a white count of 6.8 with normal differential. Hemoglobin 14.5. Chemistry studies are unremarkable. LFTs normal and troponin is normal at 4. Urinalysis reveals no evidence of infection. Urine tox screen is negative. EtOH is elevated at 198. EKG is sinus rhythm with no evidence of ischemia. No arrhythmias have been noted on ekg monitor during his ED stay. Portable chest x-ray per my interpretation reveals no focal infiltrate. Radiology interpretation reviewed and agrees. CT scan of the head reveals no evidence of intracranial process. Test results discussed with patient and at bedside. We did discuss his el evated alcohol level and he tells me he had 1 tall beer earlier this morning. I recommended he closely watch this and the alcohol concentration. He also did not eat anything to help absorb the alcohol which may have affected him more. There is no evidence of sinusitis on his scan. We did discuss taking decongestants or using Afrin to help his sinuses drain as he does have some sinus pressure. Patient does admit to some depression but no thoughts of suicide or homicide. He does state this tends to be seasonal and worse in the winter. They are comfortable with getting numbers for outpatient follow-up. They were encouraged to return if they feel he needs to talk to someone and we would have a counselor available. Discharge Plan Triage Chief Complaint: Confusion ED Provider: Marie Shaikh Dx/Rx/DC Orders Clinical Impression: Chest congestion, Alcohol intoxication, Depression Instructions: ED Bronchitis, No Antibiotic (Adult), ED Depression, ED Alcohol Intoxication Prescriptions: No Action multivitamin Tablet 1 tab PO DAILY hydrocodone-acetaminophen [hydrocodone-acetaminophen] 1 TABLET tablet 1 tab PO Q6H PRN PRN (Reason: Pain) 3 Days Qty: 10 0RF Primary Care Provider: Ajay Yanez Referrals: Counseling,Center [Group of Physicians] - As Needed Ajay Yanez MD [Primary Care Provider] - 1 Week Alberto Douglass DO [Med Staff - [employer]] - As Needed Disposition Disposition: Home, Self Care
[2024-01-01] MEDS: 0.9% Normal Saline (1000mL) 1,000 ML 150 ML IV (15:09)
[2024-01-01 15:24] LABS: Absolute Lymphocyte Count 1.68 X10^3/uL (0.83-4.51); Absolute Neutrophil Count 4.6 X10^3/uL (2.0-7.7); Basophil# 0.05 X10^3/uL; Basophil% 0.7 % (0-1); Eosinophils% 1.5 % (0-5); Hematocrit 43.6 % (40-54); Hemoglobin 14.5 g/dL (13.0-16.5); Lymphocyte # 1.68 X10^3/ul (0.83-4.51); Lymphocyte % 24.6 % (19-41); Mean Corp Hgb Conc 33.3 g/dL (32-36); Mean Corpuscular Hgb 29.6 pg (27.0-32.0); Mean Platelet Vol. 8.5 fl (6.2-12.0); Monocyte# 0.36 X10^3/uL; Monocyte% 5.3 % (0-10); NRBC Flagged by Analyzer 0 % (0-5); Neutrophil # 4.63 X10^3/uL (2.7-7.7); Neutrophil % 67.8 % (47-70); Platelet Count 327 K/mm3 (150-450); RBC Distribution Width CV 13.2 % (11.6-14.6); RBC Distribution Width SD 43.5 fl (35.1-43.9); White Blood Count 6.8 K/mm3 (4.4-11.0)
--- NOTE | 2024-01-01 15:25 | RAD_ITS ---
INDICATION: cough EXAMINATION/TECHNIQUE: X-RAY - XR Chest 1 View COMPARISON: Prior study dated: 01/14/2016 FINDINGS: LINES/DEVICES: None. LUNGS: No consolidation, edema or effusion. No pneumothorax. MEDIASTINUM AND CARDIOVASCULAR STRUCTURES: Cardiac silhouette not enlarged. Central airways and mediastinal contour are unremarkable. BONES AND SOFT TISSUES: Unremarkable. RAD/Chest 1 View (Portable) IMPRESSION: No radiographic evidence of acute cardiopulmonary disease. Electronically Signed: Jamar Smith MD at 15:35 EDT ,
[2024-01-01 15:37] LABS: AST(SGOT) 16 U/L (15-37); Alanine Aminotransfer ALT/SGPT 22 U/L (16-61); Alkaline Phosphatase 62 U/L (45-117); Anion Gap 8 (5-15); BUN 12 mg/dL (7-18); Bilirubin, Direct 0.12 mg/dL (0.00-0.30); Calcium,Total 8.5 mg/dL (8.5-10.1); Chloride 107 mmol/L (98-107); Creatinine, Serum 0.75 mg/dL (0.70-1.30); EST Glomerular Filtration Rate 112 mL/min (>60); Est Glom Filt Rate - Afr Amer 136 mL/min (>60); Estimated Creatinine Clearance 97.53 ml/min; Globulin 3.3 g/dL (2.2-4.2); Glucose 106 mg/dL (74-106); Potassium 3.7 mmol/L (3.5-5.1); Protein, Total 7.3 g/dL (6.4-8.2); Sodium Level 142 mmol/L (136-145); Troponin-I HS 4 pg/mL (3.0-78.0)
[2024-01-01 16:11] LABS: Bacteria 0 SEEN /hpf (None Seen); Mucous, Urine 0 SEEN /hpf (<or=2+); Red Blood Cells-Urine 0 SEEN /hpf (0-5); Squamous Epithelial Cells - UA 0 SEEN /hpf (0-5); White Blood Cells 0 SEEN /hpf (0-5)
[2024-01-01 16:36] LABS: Color, Urine Straw (Yellow); Glucose, Dipstick Normal (Normal); Ketone-Dipstick Negative (Negative); Leukocyte Esterase-Dipstick 25 /ul (Negative); Nitrite-Dipstick Negative (Negative); Occult Blood-Urine 10 /ul (Negative); Protein-Dipstick 30 mg/dl (Negative); Urine Clarity Clear (Clear); Urine Urobilinogen Normal (Normal); Urine pH 6.5 (5.0 - 8.0)
[2024-01-01 16:48] LABS: Urine Bilirubin Dipstick 1 mg/dL (Negative)
[2024-01-01 16:55] LABS: Amphetamine Urine VISTA NEGATIVE (<1000 ng/mL); Barbiturate Urine VISTA NEGATIVE (< 200 ng/mL); Benzodiazepine Urine VISTA NEGATIVE (< 200 ng/mL); Cocaine Urine VISTA NEGATIVE (< 300 ng/mL); Ecstacy Urine VISTA NEGATIVE (< 500 ng/mL); Methadone Urine VISTA NEGATIVE (< 300 ng/mL); PCP Urine VISTA NEGATIVE (< 25 ng/mL); THC Urine VISTA NEGATIVE (< 50 ng/mL); Vista UDS pH Range 6
== END 2024-01-01 17:55 | disposition home or self-care (01) ==
PROVIDERS: Emergency Provider Emergency Medicine; PCP Family Medicine; Visit Provider Emergency Medicine
DX: R09.89 Other specified symptoms and signs involving the circulatory and respiratory systems (principal); F10.129 Alcohol abuse with intoxication, unspecified; Z87.891 Personal history of nicotine dependence; F32.A Depression, unspecified
CPT/HCPCS: 70450; 71045; 80048; 80076; 80307; 80320; 81001; 84484; 85025; 87631; 93005; 96360; 96361; 99283; J7030; G0480

== ENCOUNTER → 2024-04-07 | Outpatient (CLI) | payer OTHER, SELFPAY ==
[2024-04-07 10:36] LABS: Anion Gap 5 (5-15); BUN 11 mg/dL (7-18); BUN/Creat Ratio 13.1 RATIO (10-20); Calcium,Total 9.4 mg/dL (8.5-10.1); Chloride 105 mmol/L (98-107); Cholesterol 203 mg/dL (200); Creatinine, Serum 0.84 mg/dL (0.70-1.30); EST Glomerular Filtration Rate 98 mL/min (>60); Est Glom Filt Rate - Afr Amer 119 mL/min (>60); Glucose 120 mg/dL (74-106); High Density Lipoprotein 67 mg/dL; PSA,Total - Annual Screen 0.69 ng/mL (0.00-4.00); Potassium 4.1 mmol/L (3.5-5.1); Sodium Level 137 mmol/L (136-145); Triglycerides 60 mg/dL; Very Low Density Lipoprotein 12 mg/dL (5-40)
== END | disposition home or self-care (01) ==
LOC: MFPLAB 09:00
PROVIDERS: PCP Family Medicine; Visit Provider Family Medicine
DX: Z00.00 Encounter for general adult medical examination without abnormal findings (principal)
CPT/HCPCS: 36415; 80048; 80061; 84153; G0103